=== PATIENT | male | born 1980 | race Caucasian/White ===

== ENCOUNTER 2019-11-19 05:46 | Emergency (ER) | payer OTHER ==
[2019-11-19] MEDS ORDERED: AMOXICILLIN 500MG CAPSULE PO ONE (05:56)
[2019-11-19] MEDS ORDERED: DEXAMETHASONE SOD PHOSPHATE 10MG/ML VIAL PO ONE (05:56)
--- NOTE | 2019-11-19 05:56 | Emergency Department Record ---
History of Present Illness - General Stated complaint: SORE THROAT Time Seen by Provider: 11/19/19 05:48 Source: Patient Mode of Arrival: Ambulatory Limitations: No limitations - History of Present Illness Initial comments: 39 yo male presents with a sore throat. The patient woke up with the symptoms. No fever. No voice changes. He has a sensation of something in his throat. No swollen glands. No history of ENT surgery. No cough. No ear pain. No recent illness. He is a non smoker. MD complaint: Sore throat -: Hour(s) Location: Throat Severity: Mild Quality: Aching Consistency: Constant Improves with: None Worsens with: Swallowing Associated Symptoms: Other (None) - Related Data Previous Rx's Medication Instructions Recorded Amoxicillin 500Mg Capsule [Amoxil] 500 mg PO TID #30 tab 11/19/19 Pantoprazole Sodium [Protonix] 20 mg PO DAILY #30 tablet. 11/19/19 Allergies Allergy/AdvReac Type Severity Reaction Status Date / Time No Known Drug Allergies Allergy Verified 11/19/19 05:54 Review of Systems Constitutional: Denies: Chills, Fever, Malaise, Weakness Eyes: Denies: Eye discharge ENT: Reports: As per HPI, Throat pain. Denies: Ear pain Respiratory: Denies: Cough, Dyspnea, Stridor, Wheezes Cardiovascular: Denies: Chest pain, Edema, Syncope Endocrine: Denies: Fatigue, Polydipsia, Polyuria Gastrointestinal: Denies: Abdominal pain, Diarrhea, Nausea, Vomiting Genitourinary: Denies: Dysuria, Frequency, Hematuria Musculoskeletal: Denies: Arthralgia, Back pain, Myalgia Skin: Denies: Bruising, Change in color, Rash Neurological: Denies: Headache Psychiatric: Denies: Anxiety Hematological/Lymphatic: Denies: Easy bleeding, Easy bruising Physical Exam - General General Appearance: Alert, Oriented x3, Cooperative, No acute distress Limitations: No limitations - Head Head exam: Atraumatic, Normal inspection - Eye Eye exam: Normal appearance, PERRL. negative: Conjunctival injection, Scleral icterus - ENT ENT exam: Normal exam, Mucous membranes moist. negative: Mucous membranes dry, Normal orophraynx (The uvula appears mildly erythematous and elongated. It does not appear widened. No pus, no ulcerations) Ear exam: Normal external inspection Nasal Exam: Normal inspection Mouth exam: Normal external inspection. negative: Drooling, Muffled voice (clear voice), Trismus Throat exam: Tonsillar erythema (mild), Other (small tonsils). negative: Tonsillomegaly, Tonsillar exudate, R peritonsillar mass, L peritonsillar mass - Neck Neck exam: Normal inspection, Full ROM. negative: Lymphadenopathy, Meningismus, Tenderness, Thyromegaly - Respiratory Respiratory exam: Normal lung sounds bilaterally. negative: Respiratory distress, Rhonchi, Stridor, Wheezes - Cardiovascular Cardiovascular Exam: Regular rate, Normal rhythm, Normal heart sounds - Rectal Rectal exam: Deferred - exam: Deferred - Neurological Neurological exam: Alert, Oriented X3 - Psychiatric Psychiatric exam: Normal affect, Normal mood. negative: Agitated, Anxious - Skin Skin exam: Dry, Intact, Normal color, Warm Course - Reevaluation(s) Reevaluation #1: 11/19/19 05:58 The patient has mild uvular erythema, mild elongation. No pus, ulcers, or widening. This may be infectious, traumatic (snoring), inflammatory, allergic He will be given Decadron and an antibiotic. He has a clear voice, non toxic in appearance He was encourage to drink cool beverages today, avoid difficulty to chew or sharp foods We discussed follow in the ED if worse or not improving in the next 24 hours 11/19/19 05:58 Disposition Disposition: Discharge Clinical Impression: Uvulitis Disposition: Home, Self-Care Condition: (1) Good Instructions: Uvulitis (ED) Additional Instructions: Return to the ER for a recheck immediately if worse, any new concerns or questions Take the prescriptions provided as directed Prescriptions: Amoxicillin 500Mg Capsule [Amoxil] 500 mg PO TID #30 tab Pantoprazole Sodium [Protonix] 20 mg PO DAILY #30 tablet.dr Forms: Patient Portal Access Time of Disposition: 06:00 Quality - Quality Measures Quality Measures: N/A - Blood Pressure Screening Does Patient Have Any of the Following: No Blood Pressure Classification: Pre-Hypertensive BP Reading Systolic Measurement: 131 Diastolic Measurement: 81 Screening for High Blood Pressure: < Pre-Hypertensive BP, F/U Documented > [G8950] Pre-Hypertensive Follow-up Interventions: Referral to alternative/primary care provider.
== END 2019-11-19 06:12 | disposition home or self-care (01) ==
LOC: ER 05:46
DX: K12.2 Cellulitis and abscess of mouth (principal)
CPT/HCPCS: 99283